=== PATIENT | male | born 1970 | race Caucasian/White ===

== ENCOUNTER 2021-04-24 15:11 | Emergency (ER) | payer OTHER, SELFPAY ==
--- NOTE | ~2021-04-24 | XR_ITS ---
EXAMINATION: XR toe 5th LT min 2V EXAM DATE: 04/24/2021 15:51 INDICATION: Pain to left 5th toe, stubbed today . TECHNIQUE: Left 5th toe frontal, lateral and oblique projections obtained and reviewed. There is n o prior study for comparison. FINDINGS: There are acute closed posttraumatic fractures of both the left 5th proximal phalanx (mild angulation), and a nondisplaced fracture of the conjoined mid distal phalanx extending into the inter phalangeal joint. There is overlying soft tissue swelling. IMPRESSION: 1. Acute left 5th phalangeal fractures. Reviewed, dictated and finalized at location A.
[2021-04-24 15:24] VITALS: BP 128/72; PULSE 89; RESP 16; TEMP 37.3; O2SAT 98
--- NOTE | 2021-04-24 16:11 | ED.LOWEXIN ---
HPI - Extremity Injury (Lower) General Chief Complaint: Extremity Injury, Lower Stated Complaint: Possible injury to small Toe on left Foot Time Seen by Provider: 04/24/21 16:11 Source: patient Mode of arrival: ambulatory Limitations: no limitations History of Present Illness HPI Narrative: dIris Guthrie is a 51 yo male who stubbed his L 5th toe with pain with walking, put shoe on. Occurred just before leaving at 2:30. Related Data Home Medications Medication Instructions Recorded Confirmed glipizide 10 mg PO DAILY 04/24/21 04/24/21 lisinopril 10 mg PO DAILY 04/24/21 04/24/21 metformin 1,000 mg PO BID 04/24/21 04/24/21 pioglitazone [Actos] 45 mg PO DAILY 04/24/21 04/24/21 pravastatin 20 mg PO DAILY 04/24/21 04/24/21 Allergies Allergy/AdvReac Type Severity Reaction Status Date / Time codeine Allergy Unknown Nausea and Verified 04/24/21 15:36 Vomiting Review of Systems Review of Systems: CONSTITUTIONAL: Denies fever, chills, sweats. EYES: Denies visual changes, redness, discharge. ENT: Denies rhinorrhea, congestion, sore throat, otalgia. CARDIOVASCULAR: Denies chest pain, palpitations, edema. RESPIRATORY: Denies dyspnea, wheezing, cough GASTROINTESTINAL: Denies abdominal pain, nausea, vomiting, diarrhea. GENITOURINARY: Denies dysuria, hematuria, abnormal discharge SKIN: Denies rash or itching. NEUROLOGIC: Denies numbness, or focal weakness. PSYCHIATRIC: Denies anxiety or depression. Pain in left fifth toe after stubbing it PMFSH Past Medical History Medical History Diabetic acidosis, type II High cholesterol Hypertension Family History Family History (Updated 04/24/21 @ 16:20 by Otilia Hernández CNP) Other Diabetes mellitus Heart disease Hypertension Social History Social History (Updated 04/24/21 @ 16:20 by Otilia Hernández CNP) Smoking status: Never smoker Alcohol intake: current Comments At time of signature, I agree with nursing past medical, surgical, social and family history. There is no relevant family history pertinent to the presenting complaint. Exam Narrative: GENERAL: This is a well-nourished, well-developed patient, in mild distress. HEAD: normocephalic, atraumatic. EYES: Sclera clear/white. Vision is grossly intact. EARS: External ears normal, auditory canals clear and without drainage, TMs normal without perforation. NOSE: External nose normal without nasal discharge, nares without redness, no rhinorrhea. THROAT: Mucous membranes moist, NECK: Neck supple, CARDIOVASCULAR: Regular rate and rhythm without murmurs, gallops, or rubs. RESPIRATORY: Clear to auscultation. Breath sounds equal bilaterally. No wheezes, rales, or rhonchi. GASTROINTESTINAL: Abdomen soft, SKIN: warm, intact with no suspicious lesions or rash, good texture and turgor. NEURO: awake, alert, and oriented to person, place and time. There were no obvious focal neurologic abnormalities. Steady gait EXTREMITIES: Normal range of motion. Left foot pain with angulation of fifth toe mild edema mild ecchymosis, 2+ pedal pulse BACK: Nontender without deformity Course Course Emergency Course: Stubbed toe on box is here for leave for work his his left fifth toe which appears to be angulated X-ray shows an acute left fifth fair phalangeal fracture which is closed posttraumatic fracture with mild angulation which extends to the interphalangeal joint and some soft tissue swelling Rafael taped, ice and elevate when not walking, and placed in postop shoe and sent to podiatry for further follow-up Cressey given for pain Vital Signs Vital signs: Vital Signs Temperature 99.1 F 04/24/21 15:24 Pulse Rate 89 04/24/21 15:24 Respiratory Rate 16 04/24/21 15:24 Blood Pressure 128/72 04/24/21 15:24 Pulse Oximetry 98 04/24/21 15:24 Temperature 99.1 F 04/24/21 15:24 Pulse Rate 89 04/24/21 15:24 Respiratory Rate 16 04/24/21 15:24 Blood
== END 2021-04-24 16:34 | disposition home or self-care (01) ==
PROVIDERS: Emergency Provider Nurse Practitioner; PCP Internal Medicine
DX: S92.535A Nondisplaced fracture of distal phalanx of left lesser toe(s), initial encounter for closed fracture (principal); X58.XXXA Exposure to other specified factors, initial encounter; E78.00 Pure hypercholesterolemia, unspecified; I10 Essential (primary) hypertension; E11.10 Type 2 diabetes mellitus with ketoacidosis without coma
CPT/HCPCS: 73660; 99204; G0463

== ENCOUNTER 2024-02-10 19:50 | Emergency (ER) | payer OTHER, SELFPAY ==
[2024-02-10 20:00] VITALS: BP 119/74; PULSE 96; RESP 18; TEMP 36.7; O2SAT 99
[2024-02-10 20:08] VITALS: BP 119/74; PULSE 96; RESP 18; TEMP 36.7; O2SAT 99
--- NOTE | 2024-02-10 20:08 | ED.WOUNDLAC ---
HPI - Wound/Laceration General Chief Complaint: Wound/Laceration Stated Complaint: Cat Scratch Time Seen by Provider: 02/10/24 20:01 Source: patient, family () and RN notes reviewed Mode of arrival: ambulatory Limitations: no limitations History of Present Illness HPI narrative: The patient presents today complaining of a multiple cat scratches to the dorsum of his right hand and to the anterior right forearm that were sustained 2 days ago. There was a dog in the neighborhood the tried to get into his home and his indoor cat tried to get out. He was protecting his cat when the cat scratched him many times. Cat is up-to-date. Patient is up-to-date on their tetanus vaccine. Redness has started to spread from the scratches on his forearm. Related Data Home Medications Medication Instructions Recorded Confirmed glipizide 10 mg tablet 10 mg PO DAILY 04/24/21 04/24/21 lisinopril 10 mg tablet 10 mg PO DAILY 04/24/21 04/24/21 metformin 500 mg tablet 1,000 mg PO BID 04/24/21 04/24/21 pioglitazone 45 mg tablet (Actos) 45 mg PO DAILY 04/24/21 04/24/21 pravastatin 20 mg tablet 20 mg PO DAILY 04/24/21 04/24/21 semaglutide 2 mg/dose (8 mg/3 mL) mg subcut 02/10/24 subcutaneous pen injector (Ozempic) Allergies Allergy/AdvReac Type Severity Reaction Status Date / Time codeine Allergy Unknown Nausea and Verified 02/10/24 19:51 Vomiting Review of Systems Review of Systems: CONSTITUTIONAL: Denies body aches, fever, chills, or sweats. EYES: Denies visual changes, redness, or discharge. ENT: Denies rhinorrhea, congestion, sore throat, or otalgia. CARDIOVASCULAR: Denies chest pain, palpitations, or edema. RESPIRATORY: Denies cough or dyspnea. GASTROINTESTINAL: Denies abdominal pain, nausea, vomiting, or diarrhea. GENITOURINARY: Denies dysuria or hematuria. SKIN: Cat scratches MUSCULOSKELETAL: Denies back pain, joint pain, or myalgia. NEUROLOGIC: Denies headache, numbness, tingling, or weakness. PSYCH: Denies depression or anxiety. [facility] Past Medical History Medical History Diabetic acidosis, type II High cholesterol Hypertension Family History Family History Other Diabetes mellitus Heart disease Hypertension Social History Social History Smoking status: Never smoker Alcohol intake: current Comments At time of signature, I have reviewed and agree with nursing past medical, surgical, social and family history unless otherwise noted. Please see nursing chart for further information. There is no relevant family history pertinent to the presenting complaint Exam Narrative: GENERAL: Well-appearing, well-nourished, and in no acute distress. HEAD: Normocephalic, atraumatic. EYES: EOMI. No redness or drainage. Conjunctivae normal. ENT: Mucous membranes pink and moist. NECK: Normal AROM. CHEST: No respiratory distress. EXTREMITIES: Multiple cat scratches to the dorsum of the right hand extending to the volar aspect of the forearm. Forearm scratches are surrounded in a large area of mild erythema. No induration or drainage. Mildly tender. SKIN: Warm, dry, no rash. Capillary refill normal. Normal skin turgor. NEURO: No focal deficits. Alert and oriented x3. Gait steady. PSYCH: Normal affect. No signs of depression or anxiety. Course Course Level of Care: Express Care Visit Vital Signs Vital signs: Vital Signs Temperature 98.0 F 02/10/24 20:00 Pulse Rate 96 02/10/24 20:00 Respiratory Rate 18 02/10/24 20:00 Blood Pressure 119/74 02/10/24 20:00 Pulse Oximetry 99 02/10/24 20:00 Oxygen Delivery Room Air 02/10/24 20:00 Temperature 98.0 F 02/10/24 20:08 Pulse Rate 96 02/10/24 20:08 Respiratory Rate 18 02/10/24 20:08 Blood Pressure 119/74 02/10/24 20:08 Pulse Oximetry
== END 2024-02-10 20:16 | disposition home or self-care (01) ==
PROVIDERS: Emergency Provider Nurse Practitioner; PCP Internal Medicine
DX: L03.113 Cellulitis of right upper limb (principal); S50.811A Abrasion of right forearm, initial encounter; W55.03XA Scratched by cat, initial encounter; E78.00 Pure hypercholesterolemia, unspecified; I10 Essential (primary) hypertension; E11.9 Type 2 diabetes mellitus without complications; Z79.84 Long term (current) use of oral hypoglycemic drugs
CPT/HCPCS: 99213; G0463

== ENCOUNTER 2025-02-07 15:42 | Emergency (ER) | payer OTHER, SELFPAY ==
--- NOTE | ~2025-02-07 | XR_ITS ---
XR chest 2V Ordering provider: Emma Zhong NP History: 55 years Male with . cough for 6 wks . Comparison: None. FINDINGS: MEDIASTINUM: The cardiac silhouette is not enlarged. LUNGS: No infiltrates, effusions or pneumothorax. OTHER: No free air under the diaphragm. IMPRESSION: No acute cardiopulmonary pathology. Reviewed, dictated and finalized at location A.
[2025-02-07 15:48] VITALS: BP 140/106; PULSE 106; RESP 16; TEMP 36.6; O2SAT 99
[2025-02-07 15:49] VITALS: BP 152/102
--- NOTE | 2025-02-07 15:53 | ED_ITS ---
HPI - URI/Sore Throat General Chief Complaint: Upper Respiratory Infection Stated Complaint: cough Time Seen by Provider: 02/07/25 15:53 Source: patient Mode of arrival: ambulatory Limitations: no limitations History of Present Illness HPI Narrative: 55-year-old male presents with complaint of cough for 6 weeks. Reports cough is worse at night and with laying down. Has tried [id number] medications also Tessalon Perles and promethazine that were his significant other's prescriptions and non helping him. Denies shortness of breath. Afebrile. Patient is well-appearing, nontoxic. All systems reviewed and negative except as noted above. Related Data Home Medications ?Medication ?Instructions ?Recorded ?Confirmed ?Last Taken ?Type lisinopril 10 mg tablet 10 mg PO DAILY 04/24/21 04/24/21 Unknown History pravastatin 20 mg tablet 20 mg PO DAILY 04/24/21 04/24/21 Unknown History blood-glucose sensor (Dexcom G7 02/07/25 02/07/25 Unknown History Sensor device) metformin 1,000 mg tablet mg 02/07/25 Unknown History tirzepatide 2.5 mg/0.5 mL mg subcut 02/07/25 Unknown History subcutaneous pen injector (Mounjaro) Allergies Allergy/AdvReac Type Severity Reaction Status Date / Time codeine Allergy Unknown Nausea and Verified 02/07/25 15:50 Vomiting Review of Systems Review of Systems: CONSTITUTIONAL: Denies fever, chills, or sweats. EYES: Denies visual changes, redness, or discharge. ENT: Denies rhinorrhea, congestion, sore throat, or otalgia. CARDIOVASCULAR: Denies chest pain, palpitations, or edema. RESPIRATORY: reports cough. Denies dyspnea. GASTROINTESTINAL: Denies abdominal pain, nausea, vomiting, or diarrhea. GENITOURINARY: Denies dysuria or hematuria. SKIN: Denies rash or itching. MUSCULOSKELETAL: Denies back pain, joint pain, or myalgia. NEUROLOGIC: Denies headache, numbness, or weakness. PSYCHIATRIC: Denies anxiety or depression. All other systems reviewed are negative, except as documented in HPI. [facility] Past Medical History Medical History Diabetic acidosis, type II High cholesterol Hypertension Family History Family History Other Diabetes mellitus Heart disease Hypertension Social History Social History Smoking status: Never smoker Alcohol intake: current Comments At time of signature, agree with nursing past medical, surgical, social and family history. There is no relevant family history pertinent to the presenting complaint. Exam Narrative: GENERAL: This is a well-nourished, well-developed patient, in no apparent distress. HEAD: normocephalic, atraumatic. EYES: PERRL. Sclera clear/white. Vision is grossly intact. EARS: External ears normal, auditory canals clear and without drainage, TMs normal without perforation. Hearing grossly intact. NOSE: External nose normal with no obvious nasal discharge, nares without redness, no rhinorrhea. THROAT: Mucous membranes moist, posterior pharynx clear. NECK: Neck supple, non-tender without lymphadenopathy, masses or thyromegaly. CARDIOVASCULAR: Regular rate and rhythm without murmurs, gallops, or rubs. RESPIRATORY: mildly decreased to bilateral lower lung tyler otherwise clear. Breath sounds equal bilaterally. No wheezes, rales, or rhonchi. SKIN: warm, Dry, intact with no suspicious lesions or rash, good texture and turgor. NEURO: awake, alert, and oriented to person, place and time. There were no obvious focal neurologic abnormalities. EXTREMITIES: No joint tenderness, effusion, or edema noted. Course Course Level of Care: Express Care Visit Vital Signs Vital signs: Vital Signs Temperature 36.6 C 02/07/25 15:48 Pulse Rate 106 H 02/07/25 15:48 Respiratory Rate 16 02/07/25 15:48 Blood Pressure 140/106 H 02/07/25 15:48 Pulse Oximetry 99 02/07/25 15:48 Oxygen Delivery Room Air 02/07/25 15:48 Temperature 36.6 C 02/07/25 15:48 Pulse Rate 106 H 02/07/25 15:48 Respiratory Rate 16 02/07/25 15:48 Blood Pressure 152/102 H 02/07/25 15:49 Pulse Oximetry 99 02/07/25 15:48 Oxygen Delivery Room Air 02/07/25 15:48 reviewed MDM - URI/Sore Throat MDM Narrative Medical decision making narrative: chest x-ray negative for pneumonia. Will treat patient for bronchitis with prednisone, albuterol inhaler. Recommend daily antihistamine. Differential Diagnosis Differential diagnosis: Likely upper respiratory infection, sinusitis, viral infection and bronchitis Medical Records Medical records narrative: XR chest 2V Ordering provider: Emma Zhong NP History: 55 years Male with . cough for 6 wks . Comparison: None. FINDINGS: MEDIASTINUM: The cardiac silhouette is not enlarged. LUNGS: No infiltrates, effusions or pneumothorax. OTHER: No free air under the diaphragm. IMPRESSION: No acute cardiopulmonary pathology. Discharge Plan Discharge Clinical Impression: Acute bronchitis Qualifiers: Bronchitis organism: unspecified organism Qualified Code(s): J20.9 - Acute bronchitis, unspecified Patient Disposition: Home Condition: Stable Instructions: Acute Bronchitis (ED) Additional Instructions: your chest x-ray was negative today. Take medications as prescribed. Take a daily antihistamine such as Claritin or Zyrtec. Drink plenty of water and rest. See your doctor if symptoms are not improving. Patient Language: Prydeinig Prescriptions: New benzonatate 200 mg capsule 200 mg PO TID PRN (Reason: cough) Qty: 20 0RF prednisone 20 mg tablet 40 mg PO DAILY 5 Days Qty: 10 0RF albuterol sulfate 90 mcg/actuation HFA aerosol inhaler 2 puff inhalation Q4-6H PRN (Reason: shortness of breath or wheezing) Qty: 8.5 0RF (DME) Aerochamber Plus Z Stat Spacer See Rx Instructions .Route Qty: 1 0RF Rx Instructions: As directed No Action lisinopril 10 mg Tablet 10 mg PO DAILY pravastatin 20 mg Tablet 20 mg PO DAILY metformin 1,000 mg tablet (DME) Dexcom G7 Sensor Device MISCELLANEOUS Mounjaro 2.5 mg/0.5 mL pen injector SUBCUT Follow-up/Referrals: Fanta,John Barragan MD [Primary Care Provider] - Time of Disposition: 16:46
== END 2025-02-07 16:50 | disposition home or self-care (01) ==
PROVIDERS: Emergency Provider Nurse Practitioner Family; PCP Internal Medicine
DX: J20.9 Acute bronchitis, unspecified (principal); E11.9 Type 2 diabetes mellitus without complications; I10 Essential (primary) hypertension; Z79.84 Long term (current) use of oral hypoglycemic drugs
CPT/HCPCS: 71046; 99213; G0463